=== PATIENT | male | born 1975 | race Caucasian/White ===

== ENCOUNTER 2020-11-06 18:34 | Inpatient (IN) | payer BC ==
[~2020-11-06] VITALS: Ht 172.7 cm; Wt 86.2 kg
[2020-11-06 18:39] VITALS: BP 117/59
[2020-11-06 19:11] LABS: RBC 2.43 mil/uL (4.50-6.00)
[2020-11-06 19:18] LABS: HEMATOCRIT 22.4 % (42.0-52.0); HEMOGLOBIN 7.1 gm/dL (14.0-18.0); MCHC 31.4 g/dL (28.0-37.0); MCV 92.3 fL (80.0-100.0); MPV 7.3 fl. (7.2-11.1); NUCLEATED RBCS 5 /100WBC; PLATELET COUNT* 65 thou/uL (150-400); RDW-CV 21.5 % (10.5-14.5); WBC 12.7 thou/uL (4.0-11.0)
[2020-11-06 19:19] LABS: CALCIUM 8.3 mg/dL (8.5-10.1); CREATININE 1.1 mg/dL (0.6-1.3); POTASSIUM 3.9 mmol/L (3.5-5.1)
[2020-11-06 19:30] LABS: TOTAL BILIRUBIN 4.5 mg/dL (<0.1-1.0); TOTAL PROTEIN 7.1 g/dL (6.4-8.2)
[2020-11-06 20:02] LABS: ABSOLUTE LYMPHOCYTES 10.8 thou/uL (0.8-5.3); ABSOLUTE MONOCYTES 0.1 thou/uL (0.0-1.2); ABSOLUTE NEUTROPHILS 1.8 thou/uL (1.6-8.1); METAMYELOCYTES 1 %
[2020-11-06 20:03] LABS: ANISOCYTOSIS 1+; HYPOCHROMASIA 1+; MICROCYTES 1+; PLATELET ESTIMATE DECREASED
[2020-11-06 20:30] LABS: AMYLASE 20 U/L (25-115); LIPASE 73 U/L (73-393)
[2020-11-07 02:30] VITALS: BP 105/66
[2020-11-07 06:10] VITALS: BP 115/54
[2020-11-07 10:00] VITALS: BP 118/76
--- NOTE | 2020-11-07 11:25 | EKG ---
[place] [address] ELECTROCARDIOGRAM REPORT Name: PRIYA POLLARD Room: [place] [address] ADM IN ..#: [id number] Admission: 11/06/20 Attend Phys: Gabriel Busby Discharge: Date of : 73 Date of Service: 11/06/20 1841 Report #: [id number] THIS REPORT FOR: //name// [facility] ED Test Date: 2020-11-06 Test Time: 18:41:36 Pat Name: PRIYA POLLARD Department: Room: [facility] Gender: M Area Manager: WINSOME : 1975 Requested By: Rachel Szymanski Order Number: [id number] MD: Arron Brice Measurements Intervals [place] Rate: 129 P: 46 WA: 145 QRS: 38 QRSD: 86 T: 11 QT: 288 QTc: 422 Interpretive Statements Sinus tachycardia Abnormal R-wave progression, early transition No previous ECG available for comparison Electronically Signed On 11-07-2020 11:24:53 CDT by Arron Brice [email or web address] <ELECTRONICALLY SIGNED> By: Arron Brice MD, [facility] 11/07/20 1124 1841 1841 Arron Brice MD, [facility] /EPI
[2020-11-07 14:00] VITALS: BP 133/81
[2020-11-07 14:28] LABS: URINE BILIRUBIN NEGATIVE (Negative); URINE BLOOD TRACE (Negative); URINE CLARITY CLEAR; URINE COLOR YELLOW; URINE GLUCOSE-RANDOM 3+ (Negative); URINE KETONES 1+ (Negative); URINE LEUKOCYTES-REFLEX NEGATIVE (Negative); URINE NITRITE-REFLEX NEGATIVE (Negative); URINE PROTEIN NEGATIVE (Negative); URINE SPECIFIC GRAVITY 1.015 (1.005-1.030)
[2020-11-07 14:35] LABS: AMP/METHAMP Negative (Negative); BARBITURATES Negative (Negative); BENZODIAZEPINES Negative (Negative); COCAINE Negative (Negative); METHADONE Negative (Negative); OPIATES Negative (Negative); PCP Negative (Negative); THC Negative (Negative)
[2020-11-07 18:00] VITALS: BP 132/83
[2020-11-07 21:59] VITALS: BP 127/76
[2020-11-08 02:17] VITALS: BP 137/78
[2020-11-08 06:36] VITALS: BP 119/72
[2020-11-08 10:30] VITALS: BP 114/72
[2020-11-08 14:00] VITALS: BP 116/66
[2020-11-08 17:40] VITALS: BP 116/66
[2020-11-08 20:54] VITALS: BP 123/79
[2020-11-09] VITALS (7 sets, daily range): BP systolic 98–133; BP diastolic 58–83
[2020-11-09 05:20] LABS: HEMOGLOBIN 7.3 gm/dL (14.0-18.0); MPV 7.4 fl. (7.2-11.1)
[2020-11-09 05:22] LABS: HEMATOCRIT 22.8 % (42.0-52.0); MCH 29.6 pg (26.0-34.0); MCHC 31.9 g/dL (28.0-37.0); MCV 92.7 fL (80.0-100.0); RBC 2.46 mil/uL (4.50-6.00); WBC 23.6 thou/uL (4.0-11.0)
[2020-11-09 05:40] LABS: ALBUMIN 2.5 g/dL (3.4-5.0); CALCIUM 8.4 mg/dL (8.5-10.1); CREATININE 0.8 mg/dL (0.6-1.3); POTASSIUM 4.3 mmol/L (3.5-5.1); TOTAL PROTEIN 6.9 g/dL (6.4-8.2)
[2020-11-09 17:37] LABS: APTT 25.4 Seconds (25.0-31.3); INR 1.2; PROTIME 12.2 Seconds (9.20-11.50)
[2020-11-10] VITALS (7 sets, daily range): BP systolic 99–127; BP diastolic 53–77
[2020-11-10 05:11] LABS: HEMATOCRIT 21.4 % (42.0-52.0); MCV 93.4 fL (80.0-100.0); MPV 7.4 fl. (7.2-11.1); PLATELET COUNT* 76 thou/uL (150-400); RBC 2.29 mil/uL (4.50-6.00); RDW-CV 22.1 % (10.5-14.5); WBC 24.1 thou/uL (4.0-11.0)
[2020-11-10 05:34] LABS: ALBUMIN 2.3 g/dL (3.4-5.0); CALCIUM 8.3 mg/dL (8.5-10.1); CREATININE 0.8 mg/dL (0.6-1.3); POTASSIUM 4.5 mmol/L (3.5-5.1); TOTAL BILIRUBIN 2.5 mg/dL (<0.1-1.0); TOTAL PROTEIN 6.6 g/dL (6.4-8.2)
[2020-11-10 05:52] LABS: HEMOGLOBIN 6.6 gm/dL (14.0-18.0)
[2020-11-10 09:18] LABS: % SATURATION 24 % (20-39); IRON 73 ug/dL (50-175)
[2020-11-10 12:07] LABS: IgG 995 mg/dL (603-1613); IgM 96 mg/dL (20-172)
--- NOTE | 2020-11-10 14:35 | 2DMMODE ---
[place] [address] 2 D/M-MODE ECHOCARDIOGRAM Name: PRIYA POLLARD Room: [address] IN .Maria Guadalupe.#: [id number] Admission: 11/06/20 Attend Phys: Gabriel Busby Discharge: Date of : 73 Date of Service: 11/10/20 1435 Report #: [id number] THIS REPORT FOR: cc: FAM - No family physician/PCP FAM - No family physician/PCP Arron Brice MD [facility] ~ APPROVED REPORT Study performed: 11/10/2020 10:12:11 EXAM: Comprehensive 2D, Doppler, and color-flow Echocardiogram Patient Location: In-Patient Room #: [facility] Status: routine BSA: 1.99 HR: 92 bpm BP: 108/65 mmHg Rhythm: NSR Other Information Study Quality: Good Indications Dyspnea 2D Dimensions IVSd: 11.32 (7-11mm) LVOT Diam: 21.17 (18-24mm) LVDd: 43.31 mm PWd: 10.00 (7-11mm) Ascending Ao: 28.07 (22-36mm) LVDs: 26.88 (25-40mm) Aortic Root: 30.12 mm Volumes Left Atrial Volume (Systole) LA ESV Index: 34.00 mL/m2 Aortic Valve AoV Peak Mahamed.: 2.04 m/s AO Peak Gr.: 16.66 mmHg LVOT Max P.38 mmHg AO Mean Gr.: 8.49 mmHg LVOT Mean P.02 mmHg LVOT Max V: 1.45 m/s AO V2 VTI: 33.51 cm LVOT Mean V: 0.90 m/s RYAN (VTI): 2.95 cm2 LVOT V1 VTI: 28.11 [place] [address] 2 D/M-MODE ECHOCARDIOGRAM Name: PRIYA POLLARD Room: [address] IN ..#: [id number] Admission: 11/06/20 Attend Phys: Gabriel Busby Discharge: Date of : 73 Date of Service: 11/10/20 1435 Report #: [id number] Mitral Valve E/A Ratio: 1.31 MV Decel. Time: 252.78 ms MV E Max Mahamed.: 1.09 m/s MV PHT: 73.31 ms MVA (PHT): 3.00 cm2 TDI E/Lateral E': 6.81 E/Medial E': 7.27 Medial E' Mahamed.: 0.15 m/s Lateral E' Mahamed.: 0.16 m/s Pulmonary Valve PV Peak Mahamed.: 1.34 m/s PV Peak Gr.: 7.20 mmHg Tricuspid Valve RAP Estimate: 5.00 mmHg TR Peak Gr.: 25.36 mmHg RVSP: 30.00 mmHg PA Pressure: 30.00 mmHg Left Ventricle The left ventricle is normal size. There is normal LV segmental wall motion. There is normal left ventricular wall thickness. Left ventricular systolic function is normal. The left ventricular ejection fraction is within the normal range. LVEF is 60-65%. The left ventricular diastolic function is normal. Right Ventricle The right ventricle is normal size. The right ventricular systolic function is normal. Atria Left atrium is mildly dilated. The right atrium size is normal. Aortic Valve The Aortic valve is sclerotic. No aortic regurgitation is present. There is no aortic valvular stenosis. Mitral Valve The mitral valve is normal in structure. Mild mitral regurgitation. No evidence of mitral valve stenosis. Tricuspid Valve The tricuspid valve is normal in structure. Trace tricuspid regurgitation. estimated pa pressure 35 [place] [address] 2 D/M-MODE ECHOCARDIOGRAM Name: PRIYA POLLARD Room: [address]#: [id number] Admission: 11/06/20 Attend Phys: Gabriel Busby Discharge: Date of : 73 Date of Service: 11/10/20 1435 Report #: [id number] Pulmonic Valve The pulmonary valve is normal in structure. There is no pulmonic valvular regurgitation. Great Vessels The aortic root is normal in size. IVC is normal in size and collapses >50% with inspiration. Pericardium There is no pericardial effusion. <Conclusion> LVEF is 60-65%. Left atrium is mildly dilated. The Aortic valve is sclerotic. Mild mitral regurgitation. <ELECTRONICALLY SIGNED> By: Arron Brice MD, FACC 11/10/20 1435 1435 1435 Arron Brice MD, FACC /INF
[2020-11-10 14:40] LABS: ABSOLUTE LYMPHOCYTES 22.4 thou/uL (0.8-5.3); ABSOLUTE MONOCYTES 0.5 thou/uL (0.0-1.2); ABSOLUTE NEUTROPHILS 1.2 thou/uL (1.6-8.1); ANISOCYTOSIS 1+; HYPOCHROMASIA 1+; MICROCYTES 1+; PLATELET ESTIMATE DECREASED
[2020-11-10 18:01] LABS: APTT 26.2 Seconds (25.0-31.3); INR 1.2; PROTIME 13.1 Seconds (9.20-11.50)
[2020-11-10 18:04] LABS: HEMATOCRIT 27.6 % (42.0-52.0); MCH 29.1 pg (26.0-34.0); MCHC 31.4 g/dL (28.0-37.0); MCV 92.7 fL (80.0-100.0); MPV 7.7 fl. (7.2-11.1); NUCLEATED RBCS 2 /100WBC; PLATELET COUNT* 88 thou/uL (150-400); RBC 2.97 mil/uL (4.50-6.00); RDW-CV 20.6 % (10.5-14.5); WBC 27.9 thou/uL (4.0-11.0)
[2020-11-10 18:06] LABS: HEMOGLOBIN 8.7 gm/dL (14.0-18.0)
[2020-11-10 18:46] LABS: ABSOLUTE BASOPHILS 0.1 thou/uL (0.0-0.2); ABSOLUTE LYMPHOCYTES 24.9 thou/uL (0.8-5.3); ABSOLUTE MONOCYTES 0.2 thou/uL (0.0-1.2); ABSOLUTE NEUTROPHILS 2.7 thou/uL (1.6-8.1); BASOPHILS 0.2 %; EOSINOPHILS 0.1 %; LYMPHOCYTES 89.2 %; MONOCYTES 0.7 %; POLYS 9.8 %
--- NOTE | 2020-11-10 21:16 | CON ---
[address] [address] CONSULTATION Name: ATULPRIYA J Room: [address] IN M.R.#: [id number] Admission: 11/06/20 Attend Phys: Charisse Houston Discharge: Date of : 73 Report #: [id number] THIS REPORT FOR: cc: FAM - No family physician/PCP FAM - No family physician/PCP Milton Arboleda MD ~ DATE OF CONSULTATION: 11/09/2020 REQUESTING PHYSICIAN: Iftikhar Lancaster DO. INDICATION FOR CONSULTATION: Acute hypoxemic respiratory failure. HISTORY OF PRESENT ILLNESS: This is a 45-year-old gentleman. 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 He has not been vaccinated for COVID-19. There is no known history of smoking. He does have a history of iodine dye allergy. The patient now presented with increasing shortness of breath, fever and headache. He has also had a cough. There is only scanty sputum production. He does not have chest pain. He has mild swelling of lower extremities. There is no calf pain. Upon arrival, the patient was hypoxemic on room air; however was requiring 2-3 liters of oxygen to maintain O2 saturation in the low 90s. He was found to be anemic with a hemoglobin of 7.1. He also had low platelets at 65. His WBC count initially was elevated to 12.7, which has now jumped to 23.6, in addition to him being more hypoxemic, requiring 15 liters of oxygen via nasal cannula. REVIEW OF SYSTEMS: The patient's review of systems for 12 points is negative except as mentioned above. PAST MEDICAL HISTORY: Hypertension and hyperlipidemia, not vaccinated for COVID-19. SOCIAL HISTORY: There is no known history of smoking, ethanol abuse or drug abuse. CURRENT MEDICATIONS: List in [employer] reviewed. HOME MEDICATIONS: There are no known home medications. ALLERGIES: HE IS REPORTED TO HAVE HAD SHORTNESS OF BREATH AFTER BEING ADMINISTERED IV DYE. FAMILY HISTORY: There is no pertinent family history. PHYSICAL EXAMINATION: [place] [address] CONSULTATION Name: PRIYA POLLARD Room: [address]#: [id number] Admission: 11/06/20 Attend Phys: Charisse Houston Discharge: Date of : 73 Report #: [id number] GENERAL: He is alert, awake and oriented. VITAL SIGNS: He has a pulse of 94 and a blood pressure of 118/58. He is saturating 94%. He is on 15 liters nasal cannula. He had a fever of 38.2 this morning, his temperature is 37.0 now. HEENT: Head is normocephalic and atraumatic. NECK: Does not show raised JVP, asymmetry, mass or lymph nodes. CHEST: Symmetrical expansion on inspection and palpation. On auscultation, breath sounds are bilaterally equal, but decreased. I do not hear any added sounds. Expirations are prolonged though. HEART: Regular. There is no murmur. ABDOMEN: Soft and nontender. EXTREMITIES: Lower extremities show trace edema, no calf tenderness. SKIN: Dry and intact. NEUROLOGIC: Moves all extremities bilaterally equally and spontaneously with no focal deficit identified. LABORATORY DATA: The patient's chest x-rays as well as CT chest are reviewed, they are consistent with ARDS secondary to COVID-19, there likely is a secondary bacterial infection as well. The CT chest is without contrast. The perfusion scan is a low probability. The patient's lab work is in [employer], this is reviewed. ASSESSMENT AND PLAN: 1. Acute hypoxemic respiratory failure secondary to COVID-19. We will continue to titrate oxygen. Ambulate to chair, prone positioning if possible, avoid supine sleep. If oxygen needs worsen, then we will have a low threshold of adding a BiPAP while asleep. I recommend that he be started on Brovana and therefore will need to be transferred to a negative pressure room. May also continue albuterol as needed. 2. COVID-19. We will continue with dexamethasone. I increased the dose, would also continue with remdesivir, I do not feel strongly either way regarding treating him or holding off on convalescent plasma. The potential benefit on the other hand, we have also not completely ruled out thromboembolism, which could be worsened with plasma as well. I do not recommend giving him Actemra. Unfortunately, we are out of Actemra at this time. 3. Pulmonary infiltrates/sepsis. He has a significant elevation in WBC count. His platelet counts have also dropped. I suspect therefore that he has sepsis. The most likely etiology will be bacterial pneumonia. Other etiologies are not ruled out at this point. Urinalysis looks okay. Blood cultures were sent. We will do a nasal swab for MRSA if possible and do a sputum culture as well. Meanwhile, he is already on Zithromax, which we will continue. I added cefepime and vancomycin. We will need to watch his fluid status closely. If his BUN and creatinine and blood pressure are maintained, then I will perhaps be inclined to keep him on the community relations assistant side due to respiratory failure. [address] [place] [address] CONSULTATION Name: PRIYA POLLARD Room: [address] IN [facility]#: [id number] Admission: 11/06/20 Attend Phys: Charisse Houston Discharge: Date of : 73 Report #: [id number] 4. Hyperglycemia. Note that he has no previous history of diabetes. Glucoses of 444. Pending review by the primary service, I increased his insulin sliding scale to moderate. He is on Lantus at bedtime as well. He may need more insulin. 5. Elevated D-dimer/thrombocytopenia, V/Q scan is low probability. Unfortunately, we cannot do a CTA chest due to allergy. I would do venous Dopplers. We will do an echo. For now, I kept the Lovenox at prophylactic dose, but we will need to watch this closely. 6. ____. Switch his Pepcid to Protonix. 7. Clostridium difficile prophylaxis, Lactinex. The patient is critically ill at this time. Total time spent providing critical care to this patient today exceeds 41 minutes. <ELECTRONICALLY SIGNED> By: Milton Arboleda MD 11/10/20 2116 1601 2015Atravis Arboleda MD /nt
[2020-11-10 23:06] LABS: HEPATITIS B SURFACE AG Negative (Negative)
[2020-11-11 00:12] VITALS: BP 105/63
[2020-11-11 04:29] LABS: HEMOGLOBIN 7.9 gm/dL (14.0-18.0); MPV 7.6 fl. (7.2-11.1); PLATELET COUNT* 77 thou/uL (150-400)
[2020-11-11 04:32] LABS: HEMATOCRIT 25.2 % (42.0-52.0); MCH 29.4 pg (26.0-34.0); MCHC 31.5 g/dL (28.0-37.0); MCV 93.4 fL (80.0-100.0); RBC 2.69 mil/uL (4.50-6.00); RDW-CV 21.3 % (10.5-14.5); WBC 28.4 thou/uL (4.0-11.0)
[2020-11-11 04:40] VITALS: BP 105/46
[2020-11-11 04:57] LABS: ALBUMIN 2.3 g/dL (3.4-5.0); CALCIUM 8.2 mg/dL (8.5-10.1); CREATININE 0.8 mg/dL (0.6-1.3); DIRECT BILIRUBIN 0.9 mg/dL (<0.1-0.3); POTASSIUM 4.5 mmol/L (3.5-5.1); TOTAL BILIRUBIN 2.4 mg/dL (<0.1-1.0); TOTAL PROTEIN 6.4 g/dL (6.4-8.2)
[2020-11-11 07:50] VITALS: BP 121/48
[2020-11-11 08:07] LABS: ANTI-DNA SCREEN <1 IU/mL (0-9); ANTI-RNP 0.6 AI (0.0-0.9); ANTI-SSA <0.2 AI (0.0-0.9); ANTIJO-I AB <0.2 AI (0.0-0.9)
[2020-11-11 11:07] LABS: CERULOPLASMIN 40.9 mg/dL (16.0-31.0)
[2020-11-11 12:10] VITALS: BP 107/59
[2020-11-11 16:35] VITALS: BP 101/45
[2020-11-11 21:30] VITALS: BP 108/61
[2020-11-12 00:27] VITALS: BP 107/62
[2020-11-12 04:01] LABS: ABSOLUTE BASOPHILS 0.1 thou/uL (0.0-0.2); ABSOLUTE LYMPHOCYTES 34.5 thou/uL (0.8-5.3); ABSOLUTE MONOCYTES 0.4 thou/uL (0.0-1.2); BASOPHILS 0.3 %; HEMATOCRIT 27.2 % (42.0-52.0); HEMOGLOBIN 8.5 gm/dL (14.0-18.0); LYMPHOCYTES 90.7 %; MCHC 31.1 g/dL (28.0-37.0); MCV 93.4 fL (80.0-100.0); MONOCYTES 1.1 %; MPV 7.6 fl. (7.2-11.1); NUCLEATED RBCS 3 /100WBC; PLATELET COUNT* 78 thou/uL (150-400); POLYS 7.9 %; RBC 2.92 mil/uL (4.50-6.00); RDW-CV 20.6 % (10.5-14.5); WBC 38.1 thou/uL (4.0-11.0)
[2020-11-12 04:19] LABS: ALBUMIN 2.4 g/dL (3.4-5.0); CALCIUM 8.2 mg/dL (8.5-10.1); CREATININE 0.7 mg/dL (0.6-1.3); TOTAL BILIRUBIN 2.2 mg/dL (<0.1-1.0); TOTAL PROTEIN 6.5 g/dL (6.4-8.2)
[2020-11-12 04:42] VITALS: BP 117/69
[2020-11-12 07:08] LABS: HEMOGLOBIN 6.7 g/dL (13.0-17.7)
[2020-11-12 08:03] VITALS: BP 129/68
[2020-11-12 12:00] VITALS: BP 122/57
[2020-11-12 16:00] VITALS: BP 101/64
[2020-11-12 22:12] VITALS: BP 117/57
[2020-11-13] VITALS: BP 118/72
[2020-11-13 04:00] VITALS: BP 119/70
[2020-11-13 08:00] VITALS: BP 111/59
[2020-11-13 12:00] VITALS: BP 113/56
[2020-11-13 15:08] LABS: HEMOGLOBIN 7.7 g/dL (13.0-17.7)
[2020-11-13 16:11] VITALS: BP 117/67
[2020-11-13 22:08] VITALS: BP 90/49
[2020-11-14 00:38] VITALS: BP 104/62
[2020-11-14 05:04] VITALS: BP 122/62
[2020-11-14 08:00] VITALS: BP 95/44
[2020-11-14 09:06] LABS: ALBUMIN 2.4 g/dL (3.4-5.0); CREATININE 0.8 mg/dL (0.6-1.3); MAGNESIUM 2.1 mg/dL (1.8-2.4); PHOSPHORUS* 3.6 mg/dL (2.5-4.9); POTASSIUM 4.7 mmol/L (3.5-5.1); TOTAL BILIRUBIN 2.5 mg/dL (<0.1-1.0)
[2020-11-14 09:33] LABS: HEMATOCRIT 29.9 % (42.0-52.0); HEMOGLOBIN 9.3 gm/dL (14.0-18.0); MCH 29.2 pg (26.0-34.0); MCHC 31.1 g/dL (28.0-37.0); MCV 93.9 fL (80.0-100.0); MPV 7.7 fl. (7.2-11.1); NUCLEATED RBCS 5 /100WBC; PLATELET COUNT* 63 thou/uL (150-400); RBC 3.19 mil/uL (4.50-6.00); RDW-CV 20.7 % (10.5-14.5); WBC 38.7 thou/uL (4.0-11.0)
[2020-11-14 10:29] LABS: ABSOLUTE LYMPHOCYTES 33.7 thou/uL (0.8-5.3); ABSOLUTE MONOCYTES 0.8 thou/uL (0.0-1.2); ABSOLUTE NEUTROPHILS 4.3 thou/uL (1.6-8.1); ATYPICAL LYMPHS 3 %; HYPOCHROMASIA 2+; PLATELET ESTIMATE DECREASED
[2020-11-14 10:30] LABS: POLYCHROMASIA 1+
[2020-11-14 10:31] LABS: ANISOCYTOSIS 1+; OVALOCYTES 1+; POIKILOCYTOSIS 1+
[2020-11-14 10:35] LABS: TARGET CELLS Occasional
[2020-11-14 11:23] VITALS: BP 103/41
[2020-11-14 16:37] VITALS: BP 112/55
[2020-11-14 20:51] VITALS: BP 105/50
[2020-11-15] VITALS: BP 117/64
[2020-11-15 04:27] VITALS: BP 114/65
[2020-11-15 04:36] LABS: ABSOLUTE BASOPHILS 0.2 thou/uL (0.0-0.2); ABSOLUTE LYMPHOCYTES 22.6 thou/uL (0.8-5.3); ABSOLUTE MONOCYTES 0.3 thou/uL (0.0-1.2); ABSOLUTE NEUTROPHILS 2.7 thou/uL (1.6-8.1); BASOPHILS 0.6 %; HEMATOCRIT 27.4 % (42.0-52.0); HEMOGLOBIN 8.7 gm/dL (14.0-18.0); LYMPHOCYTES 87.8 %; MCH 29.5 pg (26.0-34.0); MCHC 31.8 g/dL (28.0-37.0); MCV 92.6 fL (80.0-100.0); MPV 7.7 fl. (7.2-11.1); NUCLEATED RBCS 9 /100WBC; PLATELET COUNT* 51 thou/uL (150-400); POLYS 10.6 %; RBC 2.96 mil/uL (4.50-6.00); RDW-CV 20.5 % (10.5-14.5); WBC 25.8 thou/uL (4.0-11.0)
[2020-11-15 05:09] LABS: ALBUMIN 2.8 g/dL (3.4-5.0); CALCIUM 8.2 mg/dL (8.5-10.1); CREATININE 0.7 mg/dL (0.6-1.3); MAGNESIUM 2.1 mg/dL (1.8-2.4); POTASSIUM 4.2 mmol/L (3.5-5.1); TOTAL BILIRUBIN 2.3 mg/dL (<0.1-1.0); TOTAL PROTEIN 6.5 g/dL (6.4-8.2)
[2020-11-15 08:00] VITALS: BP 136/67
[2020-11-15 12:00] VITALS: BP 119/61
[2020-11-15 12:55] LABS: BE 5.6 mmol/L (-2 to +3); PCO2 40.9 mmHg (35.0-45.0); pH 7.478 (7.340-7.450)
[2020-11-15 15:36] LABS: BE 4.7 mmol/L (-2 to +3); PCO2 40.6 mmHg (35.0-45.0); PO2 76.8 mmHg (75.0-100.0); pH 7.468 (7.340-7.450)
[2020-11-15 15:53] VITALS: BP 135/69
[2020-11-15 19:15] VITALS: BP 139/67
[2020-11-16 04:57] LABS: ABSOLUTE BASOPHILS 0.1 thou/uL (0.0-0.2); ABSOLUTE LYMPHOCYTES 27.9 thou/uL (0.8-5.3); ABSOLUTE MONOCYTES 0.3 thou/uL (0.0-1.2); BASOPHILS 0.3 %; HEMOGLOBIN 8.9 gm/dL (14.0-18.0); LYMPHOCYTES 86.5 %; MCH 29.6 pg (26.0-34.0); MCHC 31.6 g/dL (28.0-37.0); MCV 93.7 fL (80.0-100.0); MONOCYTES 0.8 %; MPV 8.1 fl. (7.2-11.1); NUCLEATED RBCS 10 /100WBC; PLATELET COUNT* 57 thou/uL (150-400); POLYS 12.4 %; RBC 2.99 mil/uL (4.50-6.00); RDW-CV 20.1 % (10.5-14.5); WBC 32.2 thou/uL (4.0-11.0)
[2020-11-16 05:24] LABS: ALBUMIN 2.8 g/dL (3.4-5.0); CALCIUM 8.4 mg/dL (8.5-10.1); CREATININE 0.8 mg/dL (0.6-1.3); MAGNESIUM 2.3 mg/dL (1.8-2.4); POTASSIUM 4.7 mmol/L (3.5-5.1); TOTAL BILIRUBIN 2.8 mg/dL (<0.1-1.0); TOTAL PROTEIN 6.8 g/dL (6.4-8.2)
[2020-11-16 08:00] VITALS: BP 109/58
[2020-11-16 12:40] VITALS: BP 118/63
[2020-11-16 15:59] VITALS: BP 99/56
[2020-11-17] VITALS: BP 109/67
[2020-11-17 03:50] VITALS: BP 149/59
[2020-11-17 04:42] VITALS: BP 125/71
[2020-11-17 08:00] VITALS: BP 133/63
[2020-11-17 08:37] LABS: HEMOGLOBIN 9.5 gm/dL (14.0-18.0)
[2020-11-17 08:39] LABS: HEMATOCRIT 30.5 % (42.0-52.0); MCH 29.4 pg (26.0-34.0); MCHC 31.3 g/dL (28.0-37.0); MCV 93.9 fL (80.0-100.0); MPV 8.3 fl. (7.2-11.1); RBC 3.24 mil/uL (4.50-6.00); RDW-CV 20.9 % (10.5-14.5)
[2020-11-17 08:47] LABS: WBC 44.9 thou/uL (4.0-11.0)
[2020-11-17 08:55] LABS: ALBUMIN 3.3 g/dL (3.4-5.0); CALCIUM 8.7 mg/dL (8.5-10.1); CREATININE 0.7 mg/dL (0.6-1.3); MAGNESIUM 2.4 mg/dL (1.8-2.4); POTASSIUM 4.7 mmol/L (3.5-5.1); TOTAL BILIRUBIN 2.5 mg/dL (<0.1-1.0); TOTAL PROTEIN 7.2 g/dL (6.4-8.2)
[2020-11-17 11:45] LABS: BE 4.1 mmol/L (-2 to +3); PCO2 35.3 mmHg (35.0-45.0); PO2 60.2 mmHg (75.0-100.0); pH 7.506 (7.340-7.450)
[2020-11-17 11:48] VITALS: BP 114/63
[2020-11-17 13:38] LABS: BE -0.2 mmol/L (-2 to +3); PCO2 46.5 mmHg (35.0-45.0); PO2 70.6 mmHg (75.0-100.0); pH 7.357 (7.340-7.450)
--- NOTE | 2020-11-17 14:36 | EKG ---
[place] [address] ELECTROCARDIOGRAM REPORT Name: PRIYA POLLARD Room: [address] ADM IN M.R.#: [id number] Admission: 11/06/20 Attend Phys: Gabriel Busby Discharge: Date of : 73 Date of Service: 11/17/20 1119 Report #: [id number] THIS REPORT FOR: //name// [facility] Test Date: 2020-11-17 Test Time: 11:19:47 Pat Name: PRIYA ATUL Department: Room: [address] Gender: M Senior Underwriting Assistant: ELYSE : 1975 Requested By: Brittany Solorzano Order Number: [id number] Lili MD: Alexandro Pal Measurements Intervals [place] Rate: 75 P: 15 TN: 131 QRS: 39 QRSD: 80 T: 34 QT: 385 QTc: 430 Interpretive Statements Sinus rhythm Compared to ECG 11/06/2020 18:41:36 Sinus tachycardia no longer present Electronically Signed On 11-17-2020 14:36:30 CDT by Alexandro Pal [email or web address] <ELECTRONICALLY SIGNED> By: Alexandro Pal MD, [facility] 11/17/20 1436 1119 1119 Alexandro Pal MD, [facility] /EPI
[2020-11-17 17:34] LABS: BE 1.7 mmol/L (-2 to +3); PCO2 36.9 mmHg (35.0-45.0); PO2 61.8 mmHg (75.0-100.0); pH 7.458 (7.340-7.450)
--- NOTE | 2020-11-20 17:06 | PATH ---
[address] [address] PATHOLOGY RPT PROCEDURE Name: PRIYA POLLARD Room: [address] IN ..#: [id number] Admission: 11/06/20 Date of : 73 Discharge: 11/17/20 Report #: [id number] Path Case #: [id number] [facility] Accession Number: [id number] . 01 Material submitted: . vein - PERIPHERAL BLOOD . 01 Clinical history: . HEMATOLYMPHOID NEOPLASIA ASSESSMENT (HNA) COVID 19 INFECTION, SEPSIS, HYPOXEMIA . 02 Diagnosis: Special studies report received from [facility], [address] [place] [address], [address], [place], [address], on case [id number], labeled with their number [id number], dated 11/17/2020. . Flow Cytometry: Hematologic Neoplasia Assessment . Clinical History COVID19 infection, sepsis and hypoxemia . Indication for Study Evaluation for hematolymphoid neoplasia . Specimen Peripheral Blood . Viability 90% (7AAD exclusion) . Interpretation Peripheral Blood: - Monotypic (clonal) B-cell population with partial CD10 expression detected (68% of leukocytes)(see comments) . Comments The differential diagnosis includes follicular lymphoma, CD10 positive marginal zone lymphoma, Burkitt lymphoma and other mature B cell neoplasm with aberrant CD10 expression. Correlation with available clinical, laboratory, and morphologic data is recommended. FISH testing (IGH/BCL2, MYC, BCL6, MALT1) has been ordered and the results will be reported separately. . Populations Analyzed Myeloid Blasts: 0.0% No significant blast population detected Abnormal B-cells: 68% Scatter properties compatible with mixed cell size (mostly small), cells characterized as: CD45+, CD5-, CD10+(partial), CD11c+, CD19+, CD20+, CD22+, CD23-/+, CD38-, CD103-, FMC7+, HLA-DR+, sIg [place]appa+ [place] [address] PATHOLOGY RPT PROCEDURE Name: PRIYA POLLARD Room: [address]#: [id number] Admission: 11/06/20 Date of : 73 Discharge: 11/17/20 Report #: [id number] Path Case #: [id number] Remaining 8% B-cells: 1.3%, polytypic/polyclonal sIg light Lymphocytes: chain pattern T-cells: no significant abnormalities of the markers tested CD4+ T-cells: 2.9% (including 0.0% CD57+ cells) CD8+ T-cells: 2.7% (including 0.1% CD57+ cells) CD4:CD8: 1.1 NK cells: 0.3% Neutrophils: 20% No significant abnormalities of the markers tested Monocytes: 0% No significant abnormalities of the markers tested Eosinophils: 2% No relative increase Basophils: 0.0% No relative increase CD45 Negative 2% No significant reactivity with the markers tested Events/Debris: (may represent unlysed red blood cells, erythroid precursors, platelets, debris, etc.) . Morphologic Evaluation A slide was reviewed for quality controller purposes only. . Specimen Description Total Cell Yield: 15.70 X 10 and 6 . Reagent(s) Used CD2, CD3, CD4, CD5, CD7, CD8, CD10, CD11b, CD11c, CD13, CD14, CD16, CD19, CD20, CD22, CD23, CD33, CD34, CD38, CD45, CD56, CD57, CD64, CD103, CD117, FMC-7, HLA-DR, kappa, lambda . at [employer] [facility], [employer]. Yg Madera MD Pathologist . . Intended Use Flow cytometry is optimally used to immunophenotypically characterize abnormal populations when they are detected. Negative flow cytometry results do not exclude lymphoma or neoplasia. Possible false negative flow cytometry results may occur in, but are not limited to, the following: neoplastic cells in Hodgkin lymphoma are not typically adequately represented by routine clinical flow cytometry; neoplastic cells may be lost or inadequately represented due to degeneration, sample processing, sampling artifact, or patchy involvement; plasma cells are typically underrepresented by flow cytometry; immature cells/blasts may be underrepresented due to hemodilution; myeloproliferative disorders and low grade myelodysplasia may not have immunophenotypic abnormalities or increased blasts. Correlation with all available clinical, laboratory, and morphologic data is always necessary to [place] [address] PATHOLOGY RPT PROCEDURE Name: PRIYA POLLARD Room: M.108-P DIS IN M.R.#: [id number] Admission: 11/06/20 Date of : 73 Discharge: 11/17/20 Report #: [id number] Path Case #: [id number] false negative flow cytometry results and to establish a diagnosis. Each marker in this analysis was used to assess for potential antigenic abnormalities or to evaluate detected abnormalities. . Any image or images that accompany this report are development representative images only and should not be used to render a diagnosis. . Disclaimer(s) This test was developed and its performance characteristics determined by [employer]. It has not been cleared or approved by the Food and Drug Administration. . Performing [facility] is a business unit of [employer] a wholly-owned subsidiary of [email or web address]. . This test was performed at [facility]. at [address], [place], [address] - Small Piece Cutter: Tony Zeng MD. . For inquiries, the physician may contact Lab: [phone] . A complete copy of the report is on file. . Professional services performed by [email or web address] [employer] at [address], [place] [address]. Technical services performed by [facility] [facility]. at [address], [place] [address]. . (CLW:[facility] 11/20/2020) . [facility] 11/20/2020 1046 Local . 02 Electronically signed: . Julia Lovett MD, Pathologist NPI- [id number] . 02 Pathologist provided ICD-10: U07.1, A41.9, R09.02 . 02 CPT . 183127 Specimen Comment: A courtesy copy of this report has been sent to [phone] Specimen Comment: Report sent to Performed at: [address] [facility] [address], [place], [place] [id number] [place] [address] PATHOLOGY RPT PROCEDURE Name: PRIYA POLLARD Room: [address] IN M.R.#: [id number] Admission: 11/06/20 Date of : 73 Discharge: 11/17/20 Report #: [id number] Path Case #: [id number] MD Sujit Fried MD Phone: [phone] Performed at: 02 [facility] [place] [address] [id number] MD Julia Lovett MD Phone: [phone]
== END 2020-11-17 18:20 | disposition short-term general hospital (02) | DRG 871 ==
LOC: M.ERS 18:34 → M.TBA-ER 22:26 → M.ORTHSURG 22:26 → M.TBA-ER 23:08 → M.ORTHSURG 11-08 17:45
PROVIDERS: Internal Medicine; Internal Medicine Critical Care Medicine; Internal Medicine Gastroenterology; Internal Medicine Hematology & Oncology; Nurse Practitioner Family; ADMIT Internal Medicine; ATTEND Internal Medicine
PROC: XW033E5 Introduction of Remdesivir Anti-infective into Peripheral Vein, Percutaneous Approach, New Technology Group 5 (ICD-10-PCS; 2020-11-07)
PROC: 5A0935A Assistance with Respiratory Ventilation, Less than 24 Consecutive Hours, High Flow/Velocity Cannula (ICD-10-PCS; principal; 2020-11-08)
PROC: 5A0935A Assistance with Respiratory Ventilation, Less than 24 Consecutive Hours, High Flow/Velocity Cannula (ICD-10-PCS; 2020-11-09)
PROC: 5A09357 Assistance with Respiratory Ventilation, Less than 24 Consecutive Hours, Continuous Positive Airway Pressure (ICD-10-PCS; 2020-11-10)
PROC: 30233N1 Transfusion of Nonautologous Red Blood Cells into Peripheral Vein, Percutaneous Approach (ICD-10-PCS; 2020-11-10)
PROC: 5A0935A Assistance with Respiratory Ventilation, Less than 24 Consecutive Hours, High Flow/Velocity Cannula (ICD-10-PCS; 2020-11-10)
PROC: 5A0935A Assistance with Respiratory Ventilation, Less than 24 Consecutive Hours, High Flow/Velocity Cannula (ICD-10-PCS; 2020-11-11)
PROC: 5A09357 Assistance with Respiratory Ventilation, Less than 24 Consecutive Hours, Continuous Positive Airway Pressure (ICD-10-PCS; 2020-11-12)
PROC: 5A0935A Assistance with Respiratory Ventilation, Less than 24 Consecutive Hours, High Flow/Velocity Cannula (ICD-10-PCS; 2020-11-12)
PROC: 5A0945A Assistance with Respiratory Ventilation, 24-96 Consecutive Hours, High Flow/Velocity Cannula (ICD-10-PCS; 2020-11-13)
PROC: 5A0935A Assistance with Respiratory Ventilation, Less than 24 Consecutive Hours, High Flow/Velocity Cannula (ICD-10-PCS; 2020-11-15)
PROC: 5A09357 Assistance with Respiratory Ventilation, Less than 24 Consecutive Hours, Continuous Positive Airway Pressure (ICD-10-PCS; 2020-11-15)
PROC: 5A0935A Assistance with Respiratory Ventilation, Less than 24 Consecutive Hours, High Flow/Velocity Cannula (ICD-10-PCS; 2020-11-16)
PROC: 5A09357 Assistance with Respiratory Ventilation, Less than 24 Consecutive Hours, Continuous Positive Airway Pressure (ICD-10-PCS; 2020-11-16)
PROC: 02HV33Z Insertion of Infusion Device into Superior Vena Cava, Percutaneous Approach (ICD-10-PCS; 2020-11-17)
PROC: 5A1935Z Respiratory Ventilation, Less than 24 Consecutive Hours (ICD-10-PCS; 2020-11-17)
PROC: 03HY32Z Insertion of Monitoring Device into Upper Artery, Percutaneous Approach (ICD-10-PCS; 2020-11-17)
PROC: 5A09357 Assistance with Respiratory Ventilation, Less than 24 Consecutive Hours, Continuous Positive Airway Pressure (ICD-10-PCS; 2020-11-17)
PROC: 0BH17EZ Insertion of Endotracheal Airway into Trachea, Via Natural or Artificial Opening (ICD-10-PCS; 2020-11-17)
PROC: B548ZZA Ultrasonography of Superior Vena Cava, Guidance (ICD-10-PCS; 2020-11-17)
DX: A41.9 Sepsis, unspecified organism (principal); U07.1 COVID-19; J96.01 Acute respiratory failure with hypoxia; J12.82 Pneumonia due to coronavirus disease 2019; D58.9 Hereditary hemolytic anemia, unspecified; R17 Unspecified jaundice; I10 Essential (primary) hypertension; E78.5 Hyperlipidemia, unspecified; D72.820 Lymphocytosis (symptomatic); D69.6 Thrombocytopenia, unspecified; R79.1 Abnormal coagulation profile; E11.65 Type 2 diabetes mellitus with hyperglycemia; R74.01 Elevation of levels of liver transaminase levels; R79.89 Other specified abnormal findings of blood chemistry; E78.00 Pure hypercholesterolemia, unspecified; E66.9 Obesity, unspecified; Z91.041 Radiographic dye allergy status; Z68.28 Body mass index [BMI] 28.0-28.9, adult; Z79.899 Other long term (current) drug therapy